=== PATIENT | male | born 1980 | race Caucasian/White ===

== ENCOUNTER 2023-04-04 18:47 | Emergency (ER) | payer OTHER ==
[2023-04-04] MEDS ORDERED: Glucagon 1 MG/ML KIT ONE (19:09)
[2023-04-04] MEDS ORDERED: Ondansetron PF 4 MG/2 ML Vial ONE (22:06)
[2023-04-04] MEDS ORDERED: Ketorolac Tromethamine 30 MG/ML VIAL ONE (22:06)
[2023-04-04] MEDS ORDERED: PROPOFOL 200 MG/20 ML VIAL ONE (22:06)
[2023-04-04] MEDS ORDERED: Lidocaine 1% PF 5 ML VIAL ONE (22:06)
[2023-04-04] MEDS ORDERED: Dexamethasone 20 MG/5 ML VIAL ONE (22:06)
[2023-04-04] MEDS ORDERED: Succinylcholine 200 MG/10 ml SYRINGE FS ONE (22:06)
== END 2023-04-04 21:52 | disposition admitted as inpatient to this hospital (09) ==
LOC: ERS 18:47
PROC: 0DC58ZZ Extirpation of Matter from Esophagus, Via Natural or Artificial Opening Endoscopic (ICD-10-PCS; principal; 2023-04-04)
DX: T18.108A Unspecified foreign body in esophagus causing other injury, initial encounter (principal); K21.00 Gastro-esophageal reflux disease with esophagitis, without bleeding; Z79.899 Other long term (current) drug therapy
CPT/HCPCS: 96374; J1100; J1611; J1885; J2405; J2704